=== PATIENT | male | born 1995 | race American Indian/Alaskan Native ===

== ENCOUNTER 2020-07-13 10:02 | Emergency (ER) | payer OTHER ==
[~2020-07-13 10:02] MED LIST: EPINEPHrine 1 MG/10 ML SYRINGE ONE; SODIUM BICARB 8.4% 50 MEQ/50 ML SYRINGE IV ONE
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
== END 2020-07-13 14:20 ==
LOC: EDBD → ED 10:02
DX: I46.9 Cardiac arrest, cause unspecified (principal)
CPT/HCPCS: 32551; 92950; 99285; J0171